=== PATIENT | female | born 1955 | race Caucasian/White ===

== ENCOUNTER 2017-01-07 15:42 | Emergency (ER) | payer OTHER ==
[~2017-01-07] VITALS: Ht 180.3 cm; Wt 77.3 kg
[2017-01-07] MEDS ORDERED: AMOX/K (15:52)
[2017-01-07] MEDS ORDERED: PRED20TA (15:52)
[2017-01-07] MEDS ORDERED: LIDOCAINE 1% MDV 20ML VIAL As Ordered ONE (15:57)
--- NOTE | 2017-01-07 16:27 | ED PDOC ---
Post-Departure Follow-Up patient not seen by ED provider - cared for by Shanna Hicks MD Jan 07, 2017 16:27
[2017-01-07 17:56] VITALS: BP 145/78
--- NOTE | 2017-01-08 09:14 | ER ---
DATE OF CONSULTATION: 01/07/2017 Ms. Shipman is a 61-year-old white female who sustained a paper cut over the weekend. The cut was in the thenar fold on the right hand. Over the past 12 hours it has become more swollen and necrotic. It looks as if there is a superficial abscess. She has had no fever or chills. She was recently started on Augmentin and on prednisone for an acute cough. Those medications were started this morning. Upon examination, she had what looked to be a pointing abscess into the thenar fold. The abscess was therefore lanced. Surprisingly, but disappointingly, there was not a lot of pus. The wound was explored to look for a foreign body and there was none. It was widely opened and packed with iodoform gauze. It was then dressed. She will be given 2 grams of IV Ancef and will continue with her Augmentin. I have asked her to stop the prednisone. I will follow her up tomorrow in the office. She has been instructed that should this become more swollen and if she should start to develop tenderness in her finger and on motion of her fingers, she should call me directly.
== END 2017-01-07 17:57 | disposition home or self-care (01) ==
LOC: M ED 15:42
DX: L02.511 Cutaneous abscess of right hand (principal)
CPT/HCPCS: 10060; 87070; 87077; 87186; 87205; 96365; 99282; J0690

== ENCOUNTER → 2019-05-03 | Outpatient (REF) | payer OTHER ==
[~2019-05-03] MED LIST: AMOX/K; PRED20TA
== END ==
LOC: M LAB REF 17:21
PROVIDERS: ATTEND Nurse Practitioner Adult Health
DX: R70.0 Elevated erythrocyte sedimentation rate (principal)

== ENCOUNTER → 2019-06-30 | Outpatient (REF) | payer OTHER | LOC: M LAB REF 12:16 | PROVIDERS: ATTEND Nurse Practitioner Adult Health | DX: Z00.01 Encounter for general adult medical examination with abnormal findings (principal) ==

== ENCOUNTER → 2019-08-02 | Outpatient (REF) ==
[2019-08-02 10:05] LABS: RUBELLA IgG QUALITATIVE IMMUNE (IMMUNE)
== END ==
LOC: M LAB 07:46
PROVIDERS: ATTEND Nurse Practitioner Adult Health
DX: Z02.1 Encounter for pre-employment examination (principal)

== ENCOUNTER → 2019-09-15 | Outpatient (REF) | payer OTHER ==
[2019-09-15 12:33] LABS: BASO % 1.3 % (0.0-1.0); EOS # 0.1 10^3/uL (0.0-0.5); EOS % 2.6 % (0.0-3.0); HEMATOCRIT 38.5 % (36.0-47.0); HEMOGLOBIN 13.1 g/dl (12.0-15.5); LYMPH % 33.8 % (24.0-44.0); MEAN CORPUSCULAR HEMOGLOBIN 33.2 pg (27.0-33.0); MEAN CORPUSCULAR VOLUME 97.7 fl (80.0-96.0); MONO # 0.5 10^3/uL (0.0-0.8); MONO % 14.8 % (0.0-5.0); NEUTROPHILS # 1.4 10^3/uL (1.5-8.5); NEUTROPHILS % 47.2 % (36.0-66.0); PLATELET COUNT, AUTOMATED 197 10^3/uL (150-450); RED BLOOD COUNT 3.94 10^6/uL (4.00-5.40); WHITE BLOOD COUNT 3.1 10^3/uL (4.0-10.0)
[2019-09-15 12:53] LABS: ERYTHROCYTE SEDIMENTATION RATE 54 mm/hr (0-30)
[2019-09-15 13:30] LABS: ALBUMIN 3.7 GM/DL (3.2-5.2); ALT/SGPT 65 U/L (12-78); BILIRUBIN,TOTAL 0.4 MG/DL (0.2-1.0); BLOOD UREA NITROGEN 10 MG/DL (7-18); CALCIUM LEVEL 9.2 MG/DL (8.8-10.2); CARBON DIOXIDE LEVEL 26 MEQ/L (21-32); CHLORIDE LEVEL 100 MEQ/L (98-107); CREATININE FOR GFR 0.58 MG/DL (0.55-1.30); GLOMERULAR FILTRATION RATE > 60.0 (>45); GLUCOSE, FASTING 94 MG/DL (70-100); IMMUNOGLOBULIN A 33.3 MG/DL (70-400); IMMUNOGLOBULIN G 282 MG/DL (681-1648); LDH LACTATE DEHYDROGENASE 151 U/L (84-246); POTASSIUM SERUM 4.3 MEQ/L (3.5-5.1); SODIUM LEVEL 134 MEQ/L (136-145); TOTAL PROTEIN 9.5 GM/DL (6.4-8.2)
[2019-09-18 00:06] LABS: BETA 2 MICROGLOBULIN 1.5 mg/L (0.6-2.4); FREE KAPPA LIGHT CHAINS SERUM 8.9 mg/L (3.3-19.4); FREE LAMBDA LIGHT CHAINS SERUM 107.7 mg/L (5.7-26.3); KAPPA/LAMBDA RATIO SERUM 0.08 (0.26-1.65)
[2019-09-19 10:40] LABS: ALBUMIN 4.62 GM/DL (3.29-5.55); ALBUMIN % 48.6 % (55.8-66.1); ALPHA-1-GLOBULIN % 2.8 % (2.9-4.9); ALPHA-1-GLOBULINS 0.27 GM/DL (0.17-0.41); ALPHA-2-GLOBULINS 0.65 GM/DL (0.42-0.99); ALPHA-2-GLOBULINS % 6.8 % (7.1-11.8); BETA-1-GLOBULINS 0.42 GM/DL (0.28-0.60); BETA-1-GLOBULINS % 4.4 % (4.7-7.2); BETA-2-GLOBULINS 0.29 GM/DL (0.19-0.55); GAMMA GLOBULIN % 34.4 % (11.1-18.8); GAMMA GLOBULINS 3.27 GM/DL (0.65-1.58)
== END ==
LOC: M LAB REF 11:41
PROVIDERS: ATTEND Internal Medicine Medical Oncology
DX: D47.2 Monoclonal gammopathy (principal)

== ENCOUNTER → 2019-10-25 | Outpatient (REF) | payer OTHER | LOC: M LAB REF 16:55 | PROVIDERS: ATTEND Internal Medicine Medical Oncology | DX: D47.2 Monoclonal gammopathy (principal) ==

== ENCOUNTER → 2020-06-27 | Outpatient (REF) | payer BC, MEDICARE ==
[~2020-06-27] MED LIST changes: +HYDR12.55 PO; +IMBR1CAP PO; +NORV5TAB PO
[2020-06-27 19:38] LABS: BASO % 1.7 % (0.0-1.0); EOS % 0.4 % (0.0-3.0); HEMATOCRIT 40.9 % (36.0-47.0); HEMOGLOBIN 13.4 g/dl (12.0-15.5); LYMPH % 41.8 % (24.0-44.0); MEAN CORPUSCULAR HEMOGLOBIN 32.4 pg (27.0-33.0); MEAN CORPUSCULAR HGB CONC 32.8 g/dl (32.0-36.5); MEAN CORPUSCULAR VOLUME 98.8 fl (80.0-96.0); MONO # 0.5 10^3/uL (0.0-0.8); MONO % 22.8 % (0.0-5.0); NEUTROPHILS % 32.9 % (36.0-66.0); PLATELET COUNT, AUTOMATED 128 10^3/uL (150-450); RED BLOOD COUNT 4.14 10^6/uL (4.00-5.40); WHITE BLOOD COUNT 2.3 10^3/uL (4.0-10.0)
[2020-06-27 19:42] LABS: OSMOLALITY SERUM 317 MOSM/KG (280-301)
[2020-06-27 19:55] LABS: NEUTROPHILS # 0.8 10^3/uL (1.5-8.5)
[2020-06-27 20:55] LABS: ALBUMIN 3.4 GM/DL (3.2-5.2); ALT/SGPT 104 U/L (12-78); BILIRUBIN,TOTAL 0.7 MG/DL (0.2-1.0); BLOOD UREA NITROGEN 6 MG/DL (7-18); CALCIUM LEVEL 8.8 MG/DL (8.8-10.2); CARBON DIOXIDE LEVEL 28 MEQ/L (21-32); CHLORIDE LEVEL 98 MEQ/L (98-107); CREATININE FOR GFR 0.61 MG/DL (0.55-1.30); GLOMERULAR FILTRATION RATE > 60.0 (>45); GLUCOSE, FASTING 103 MG/DL (70-100); IMMUNOGLOBULIN G 604 MG/DL (681-1648); POTASSIUM SERUM 5.2 MEQ/L (3.5-5.1); SODIUM LEVEL 133 MEQ/L (136-145); TOTAL PROTEIN 8.2 GM/DL (6.4-8.2)
[2020-07-03 12:08] LABS: ALBUMIN 3.93 GM/DL (3.29-5.55); ALBUMIN % 47.9 % (55.8-66.1); ALPHA-2-GLOBULINS % 8.2 % (7.1-11.8); BETA-2-GLOBULINS % 2.6 % (3.2-6.5); GAMMA GLOBULIN % 32.3 % (11.1-18.8)
[2020-07-03 12:09] LABS: ALPHA-1-GLOBULINS 0.33 GM/DL (0.17-0.41); ALPHA-2-GLOBULINS 0.67 GM/DL (0.42-0.99); BETA-1-GLOBULINS 0.41 GM/DL (0.28-0.60); BETA-2-GLOBULINS 0.21 GM/DL (0.19-0.55); GAMMA GLOBULINS 2.65 GM/DL (0.65-1.58)
[2020-07-03 21:07] LABS: FREE KAPPA LIGHT CHAINS SERUM 11.6 mg/L (3.3-19.4); FREE LAMBDA LIGHT CHAINS SERUM 109.6 mg/L (5.7-26.3); KAPPA/LAMBDA RATIO SERUM 0.11 (0.26-1.65); SERUM VISCOSITY 2.1 rel.saline (1.4-2.1)
== END ==
LOC: M LAB REF 16:48
PROVIDERS: ATTEND Specialist
DX: C85.10 Unspecified B-cell lymphoma, unspecified site (principal)

== ENCOUNTER → 2020-08-02 | Outpatient (REF) | payer BC, MEDICARE ==
[2020-08-02 17:32] LABS: BASO # 0.1 10^3/uL (0.0-0.2); BASO % 1.7 % (0.0-1.0); EOS % 0.3 % (0.0-3.0); HEMATOCRIT 38.1 % (36.0-47.0); LYMPH # 0.7 10^3/uL (1.5-5.0); LYMPH % 24.7 % (24.0-44.0); MEAN CORPUSCULAR HEMOGLOBIN 33.1 pg (27.0-33.0); MEAN CORPUSCULAR HGB CONC 34.1 g/dl (32.0-36.5); MEAN CORPUSCULAR VOLUME 96.9 fl (80.0-96.0); MONO # 0.6 10^3/uL (0.0-0.8); MONO % 21.6 % (2.0-8.0); NEUTROPHILS # 1.5 10^3/uL (1.5-8.5); NEUTROPHILS % 51.4 % (36.0-66.0); PLATELET COUNT, AUTOMATED 133 10^3/uL (150-450); RED BLOOD COUNT 3.93 10^6/uL (4.00-5.40); WHITE BLOOD COUNT 2.9 10^3/uL (4.0-10.0)
== END ==
LOC: M LAB REF 16:41
PROVIDERS: ATTEND Specialist
DX: C85.10 Unspecified B-cell lymphoma, unspecified site (principal)

== ENCOUNTER → 2020-09-20 | Outpatient (REF) | payer BC, MEDICARE | LOC: M LAB REF 11:10 | PROVIDERS: ATTEND Nurse Practitioner Adult Health | DX: S81.802A Unspecified open wound, left lower leg, initial encounter (principal); X58.XXXA Exposure to other specified factors, initial encounter; Y92.9 Unspecified place or not applicable ==

== ENCOUNTER → 2020-09-27 | Outpatient (CLI) | payer BC, MEDICARE ==
[~2020-09-27] MED LIST changes: +GLYCCAP PO; +MULT1TAB7 PO; +PRED5TA PO
[2020-09-27 16:23] LABS: HEMATOCRIT 40.1 % (36.0-47.0); HEMOGLOBIN 13.8 g/dl (12.0-15.5); MEAN CORPUSCULAR HEMOGLOBIN 33.2 pg (27.0-33.0); MEAN CORPUSCULAR HGB CONC 34.4 g/dl (32.0-36.5); MEAN CORPUSCULAR VOLUME 96.4 fl (80.0-96.0); PLATELET COUNT, AUTOMATED 152 10^3/uL (150-450); RED BLOOD COUNT 4.16 10^6/uL (4.00-5.40); WHITE BLOOD COUNT 3.7 10^3/uL (4.0-10.0)
[2020-09-27 16:47] LABS: BLOOD UREA NITROGEN 8 MG/DL (7-18); CARBON DIOXIDE LEVEL 28 MEQ/L (21-32); CHLORIDE LEVEL 97 MEQ/L (98-107); CREATININE FOR GFR 0.51 MG/DL (0.55-1.30); GLOMERULAR FILTRATION RATE > 60.0 (>45); GLUCOSE, FASTING 111 MG/DL (70-100); SODIUM LEVEL 132 MEQ/L (136-145)
== END ==
LOC: M LAB 15:46
PROVIDERS: ATTEND Nurse Practitioner Adult Health
DX: S81.802A Unspecified open wound, left lower leg, initial encounter (principal); L30.9 Dermatitis, unspecified; C88.0 Waldenstrom macroglobulinemia; X58.XXXA Exposure to other specified factors, initial encounter; Y92.9 Unspecified place or not applicable

== ENCOUNTER → 2020-10-21 | Outpatient (REF) | payer BC, MEDICARE ==
[~2020-10-21] MED LIST changes: +FURO20TA2 PO
== END ==
LOC: M LAB REF 13:39
PROVIDERS: ATTEND Physician Assistant
DX: R21 Rash and other nonspecific skin eruption (principal); C44.719 Basal cell carcinoma of skin of left lower limb, including hip

== ENCOUNTER → 2020-12-03 | Outpatient (REF) | payer BC, MEDICARE | LOC: M LAB REF 19:07 | PROVIDERS: ATTEND Dermatology | DX: L90.5 Scar conditions and fibrosis of skin (principal) ==

== ENCOUNTER → 2021-01-01 | Outpatient (REF) | payer BC, MEDICARE ==
[~2021-01-01] MED LIST changes: +LEVOTAB10 PO
[2021-01-01 18:39] LABS: BASO # 0.1 10^3/uL (0.0-0.2); BASO % 1.2 % (0.0-1.0); EOS # 0.2 10^3/uL (0.0-0.5); EOS % 3.5 % (0.0-3.0); HEMATOCRIT 36.8 % (36.0-47.0); HEMOGLOBIN 12.4 g/dl (12.0-15.5); LYMPH # 1.6 10^3/uL (1.5-5.0); LYMPH % 32.2 % (24.0-44.0); MEAN CORPUSCULAR HGB CONC 33.7 g/dl (32.0-36.5); MEAN CORPUSCULAR VOLUME 94.8 fl (80.0-96.0); MONO # 0.7 10^3/uL (0.0-0.8); MONO % 14.1 % (2.0-8.0); NEUTROPHILS # 2.4 10^3/uL (1.5-8.5); NEUTROPHILS % 48.6 % (36.0-66.0); PLATELET COUNT, AUTOMATED 198 10^3/uL (150-450); RED BLOOD COUNT 3.88 10^6/uL (4.00-5.40); WHITE BLOOD COUNT 4.9 10^3/uL (4.0-10.0)
[2021-01-03 09:06] LABS: TOTAL PROTEIN 9.4 GM/DL (6.4-8.2)
[2021-01-03 09:13] LABS: ALBUMIN 3.3 GM/DL (3.2-5.2); ALT/SGPT 32 U/L (12-78); BILIRUBIN,TOTAL 0.7 MG/DL (0.2-1.0); BLOOD UREA NITROGEN 14 MG/DL (7-18); CALCIUM LEVEL 9.5 MG/DL (8.8-10.2); CARBON DIOXIDE LEVEL 30 MEQ/L (21-32); CHLORIDE LEVEL 102 MEQ/L (98-107); CREATININE FOR GFR 0.69 MG/DL (0.55-1.30); GLOMERULAR FILTRATION RATE > 60.0 (>45); GLUCOSE, FASTING 108 MG/DL (70-100); IMMUNOGLOBULIN G 401 MG/DL (681-1648); POTASSIUM SERUM 3.6 MEQ/L (3.5-5.1); SODIUM LEVEL 137 MEQ/L (136-145); TOTAL PROTEIN 9.4 GM/DL (6.4-8.2)
[2021-01-03 09:36] LABS: IMMUNOGLOBULIN A 39.6 MG/DL (70-400)
[2021-01-03 14:31] LABS: ALBUMIN 4.11 GM/DL (3.29-5.55); ALBUMIN % 43.7 % (55.8-66.1); ALPHA-1-GLOBULIN % 2.8 % (2.9-4.9); ALPHA-1-GLOBULINS 0.26 GM/DL (0.17-0.41); ALPHA-2-GLOBULINS % 7.4 % (7.1-11.8); BETA-1-GLOBULINS % 4.3 % (4.7-7.2); BETA-2-GLOBULINS % 2.9 % (3.2-6.5); GAMMA GLOBULIN % 38.9 % (11.1-18.8)
[2021-01-03 14:32] LABS: BETA-2-GLOBULINS 0.27 GM/DL (0.19-0.55); GAMMA GLOBULINS 3.66 GM/DL (0.65-1.58)
[2021-01-03 14:42] LABS: IMMUNOTYPING SERUM IGM ABNORMAL (NORMAL); IMMUNOTYPING SERUM LAMBDA ABNORMAL (NORMAL)
== END ==
LOC: M LAB REF 18:11
PROVIDERS: ATTEND Specialist
DX: C88.0 Waldenstrom macroglobulinemia (principal)

== ENCOUNTER → 2021-03-26 | Outpatient (REF) | payer BC, MEDICARE ==
[2021-03-26 18:10] LABS: BASO # 0.1 10^3/uL (0.0-0.2); BASO % 1.3 % (0.0-1.0); EOS # 0.1 10^3/uL (0.0-0.5); EOS % 1.3 % (0.0-3.0); HEMATOCRIT 37.9 % (36.0-47.0); HEMOGLOBIN 12.8 g/dl (12.0-15.5); LYMPH # 1.3 10^3/uL (1.5-5.0); LYMPH % 23.1 % (24.0-44.0); MEAN CORPUSCULAR HEMOGLOBIN 32.3 pg (27.0-33.0); MEAN CORPUSCULAR HGB CONC 33.8 g/dl (32.0-36.5); MEAN CORPUSCULAR VOLUME 95.7 fl (80.0-96.0); MONO % 18.4 % (2.0-8.0); NEUTROPHILS % 55.4 % (36.0-66.0); PLATELET COUNT, AUTOMATED 170 10^3/uL (150-450); RED BLOOD COUNT 3.96 10^6/uL (4.00-5.40); WHITE BLOOD COUNT 5.5 10^3/uL (4.0-10.0)
[2021-03-26 18:50] LABS: ALBUMIN 3.8 GM/DL (3.2-5.2); ALT/SGPT 36 U/L (12-78); BILIRUBIN,TOTAL 1.1 MG/DL (0.2-1.0); BLOOD UREA NITROGEN 13 MG/DL (7-18); CALCIUM LEVEL 9.7 MG/DL (8.8-10.2); CARBON DIOXIDE LEVEL 29 MEQ/L (21-32); CHLORIDE LEVEL 98 MEQ/L (98-107); CREATININE FOR GFR 0.62 MG/DL (0.55-1.30); GLOMERULAR FILTRATION RATE > 60.0 (>45); GLUCOSE, FASTING 85 MG/DL (70-100); POTASSIUM SERUM 3.8 MEQ/L (3.5-5.1); SODIUM LEVEL 131 MEQ/L (136-145); TOTAL PROTEIN 8.7 GM/DL (6.4-8.2)
== END ==
LOC: M LAB REF 17:31
PROVIDERS: ATTEND Specialist
DX: C88.0 Waldenstrom macroglobulinemia (principal)

== ENCOUNTER → 2021-07-01 | Outpatient (CLI) | payer BC, MEDICARE ==
[~2021-07-01] MED LIST changes: +TRIA1CR80
== END ==
LOC: M ADAMS 13:59
PROVIDERS: ATTEND Specialist
DX: C88.0 Waldenstrom macroglobulinemia (principal)

== ENCOUNTER → 2021-10-29 | Outpatient (CLI) | payer MEDICARE, BC ==
[2021-10-29 17:54] LABS: HEMOGLOBIN A1c 4.9 %
[2021-10-29 18:12] LABS: CHOLESTEROL RISK RATIO 3.278 (<5)
== END ==
LOC: M ADAMS 15:20
PROVIDERS: ATTEND Nurse Practitioner Adult Health
DX: E78.00 Pure hypercholesterolemia, unspecified (principal); R01.1 Cardiac murmur, unspecified

== ENCOUNTER → 2021-10-29 | Outpatient (CLI) | payer MEDICARE, BC ==
[2021-10-29 17:42] LABS: BASO # 0.1 10^3/uL (0.0-0.2); EOS # 0.1 10^3/uL (0.0-0.5); EOS % 1.8 % (0.0-3.0); HEMATOCRIT 37.8 % (36.0-47.0); LYMPH # 1.4 10^3/uL (1.5-5.0); LYMPH % 27.7 % (24.0-44.0); MEAN CORPUSCULAR HEMOGLOBIN 33.4 pg (27.0-33.0); MEAN CORPUSCULAR HGB CONC 34.4 g/dl (32.0-36.5); MEAN CORPUSCULAR VOLUME 97.2 fl (80.0-96.0); MONO # 0.9 10^3/uL (0.0-0.8); MONO % 17.4 % (2.0-8.0); NEUTROPHILS # 2.6 10^3/uL (1.5-8.5); NEUTROPHILS % 51.7 % (36.0-66.0); PLATELET COUNT, AUTOMATED 195 10^3/uL (150-450); RED BLOOD COUNT 3.89 10^6/uL (4.00-5.40); WHITE BLOOD COUNT 5.1 10^3/uL (4.0-10.0)
[2021-10-29 18:50] LABS: ALBUMIN 3.5 GM/DL (3.2-5.2); ALT/SGPT 49 U/L (12-78); BILIRUBIN,TOTAL 0.8 MG/DL (0.2-1.0); BLOOD UREA NITROGEN 13 MG/DL (7-18); CARBON DIOXIDE LEVEL 26 MEQ/L (21-32); CHLORIDE LEVEL 101 MEQ/L (98-107); CREATININE FOR GFR 0.64 MG/DL (0.55-1.30); GLOMERULAR FILTRATION RATE > 60.0 (>45); GLUCOSE, FASTING 93 MG/DL (70-100); IMMUNOGLOBULIN A 31.8 MG/DL (70-400); IMMUNOGLOBULIN G 305 MG/DL (681-1648); POTASSIUM SERUM 4.2 MEQ/L (3.5-5.1); SODIUM LEVEL 135 MEQ/L (136-145); TOTAL PROTEIN 9.7 GM/DL (6.4-8.2)
[2021-10-31 14:02] LABS: ALBUMIN 4.19 GM/DL (3.29-5.55); ALBUMIN % 43.2 % (55.8-66.1); ALPHA-1-GLOBULIN % 2.8 % (2.9-4.9); ALPHA-1-GLOBULINS 0.27 GM/DL (0.17-0.41); ALPHA-2-GLOBULINS 0.78 GM/DL (0.42-0.99); BETA-1-GLOBULINS 0.43 GM/DL (0.28-0.60); BETA-1-GLOBULINS % 4.4 % (4.7-7.2); BETA-2-GLOBULINS 0.28 GM/DL (0.19-0.55); BETA-2-GLOBULINS % 2.9 % (3.2-6.5); GAMMA GLOBULIN % 38.7 % (11.1-18.8); GAMMA GLOBULINS 3.75 GM/DL (0.65-1.58)
== END ==
LOC: M ADAMS 15:17
PROVIDERS: ATTEND Internal Medicine Hematology & Oncology
DX: C88.0 Waldenstrom macroglobulinemia (principal); E78.00 Pure hypercholesterolemia, unspecified; R01.1 Cardiac murmur, unspecified; Z79.899 Other long term (current) drug therapy

== ENCOUNTER → 2022-02-17 | Outpatient (REF) | payer MEDICARE, BC ==
[2022-02-17 16:56] LABS: EOS # 0.1 10^3/uL (0.0-0.5); EOS % 1.2 % (0.0-3.0); HEMATOCRIT 37.7 % (36.0-47.0); HEMOGLOBIN 12.9 g/dl (12.0-15.5); LYMPH # 1.3 10^3/uL (1.5-5.0); LYMPH % 31.1 % (24.0-44.0); MEAN CORPUSCULAR HEMOGLOBIN 33.2 pg (27.0-33.0); MEAN CORPUSCULAR HGB CONC 34.2 g/dl (32.0-36.5); MEAN CORPUSCULAR VOLUME 97.2 fl (80.0-96.0); MONO # 0.9 10^3/uL (0.0-0.8); MONO % 22.2 % (2.0-8.0); NEUTROPHILS # 1.8 10^3/uL (1.5-8.5); PLATELET COUNT, AUTOMATED 152 10^3/uL (150-450); RED BLOOD COUNT 3.88 10^6/uL (4.00-5.40); WHITE BLOOD COUNT 4.2 10^3/uL (4.0-10.0)
[2022-02-17 18:32] LABS: ALBUMIN 3.6 GM/DL (3.2-5.2); ALT/SGPT 43 U/L (12-78); BLOOD UREA NITROGEN 11 MG/DL (7-18); CALCIUM LEVEL 9.7 MG/DL (8.8-10.2); CARBON DIOXIDE LEVEL 29 MEQ/L (21-32); CHLORIDE LEVEL 98 MEQ/L (98-107); CREATININE FOR GFR 0.55 MG/DL (0.55-1.30); GLOMERULAR FILTRATION RATE > 60.0 (>45); GLUCOSE, FASTING 96 MG/DL (70-100); IMMUNOGLOBULIN G 378 MG/DL (681-1648); POTASSIUM SERUM 3.9 MEQ/L (3.5-5.1); SODIUM LEVEL 133 MEQ/L (136-145); TOTAL PROTEIN 9.1 GM/DL (6.4-8.2)
== END ==
LOC: M LABDRWAD 16:15
PROVIDERS: ATTEND Specialist
DX: C88.0 Waldenstrom macroglobulinemia (principal)

== ENCOUNTER → 2022-07-29 | Outpatient (REF) | payer MEDICARE, BC ==
[2022-07-29 16:38] LABS: BASO # 0.1 10^3/uL (0.0-0.2); BASO % 1.2 % (0.0-1.0); EOS # 0.1 10^3/uL (0.0-0.5); EOS % 1.3 % (0.0-3.0); HEMATOCRIT 38.8 % (36.0-47.0); LYMPH % 32.7 % (24.0-44.0); MEAN CORPUSCULAR HEMOGLOBIN 32.6 pg (27.0-33.0); MEAN CORPUSCULAR HGB CONC 33.5 g/dl (32.0-36.5); MEAN CORPUSCULAR VOLUME 97.2 fl (80.0-96.0); MONO # 0.8 10^3/uL (0.0-0.8); MONO % 13.7 % (2.0-8.0); NEUTROPHILS # 3.1 10^3/uL (1.5-8.5); NEUTROPHILS % 50.8 % (36.0-66.0); PLATELET COUNT, AUTOMATED 217 10^3/uL (150-450); RED BLOOD COUNT 3.99 10^6/uL (4.00-5.40)
[2022-07-29 16:39] LABS: CK-MB VALUE MASS < 1.0 NG/ML (<3.6)
[2022-07-29 16:41] LABS: CPK CREATINE PHOSPHOKINASE 23 U/L (34-145); MB/CK RELATIVE INDEX 4.34 (< OR =4)
[2022-07-29 16:42] LABS: IMMUNOGLOBULIN A 50.9 MG/DL (40-350)
[2022-07-29 16:43] LABS: IMMUNOGLOBULIN G 376 MG/DL (650-1600)
[2022-07-30 07:52] LABS: IMMUNOGLOBULIN M > 3300.0 MG/DL (50-300)
== END ==
LOC: M LABDRWAD 15:55
PROVIDERS: ATTEND Specialist
DX: C88.0 Waldenstrom macroglobulinemia (principal)

== ENCOUNTER → 2022-09-22 | Outpatient (CLI) | payer BC, MEDICARE ==
[~2022-09-22] MED LIST changes: +GASTROGRAFIN SOLUTION 30ML As Ordered ONE; +ISOVUE-370 76% 100ML VIAL As Ordered ONE
== END ==
LOC: M RAD 15:56
PROVIDERS: ATTEND Specialist
DX: D89.0 Polyclonal hypergammaglobulinemia (principal)
CPT/HCPCS: 71260; 74177; Q9963; Q9967

== ENCOUNTER → 2022-11-11 | Outpatient (CLI) | payer BC, MEDICARE ==
[~2022-11-11] MED LIST changes: -GASTROGRAFIN SOLUTION 30ML As Ordered ONE; -ISOVUE-370 76% 100ML VIAL As Ordered ONE
[2022-11-11 18:49] LABS: CHOLESTEROL RISK RATIO 2.52 (<5); HDL CHOLESTEROL 82.7 MG/DL (>40); LDL CHOLESTEROL 117.3 MG/DL (<100); NON-HDL-C 126.3 MG/DL
== END ==
LOC: M LAB 17:41
PROVIDERS: ATTEND Nurse Practitioner Adult Health
DX: E78.00 Pure hypercholesterolemia, unspecified (principal)

== ENCOUNTER → 2022-11-11 | Outpatient (CLI) | payer BC, MEDICARE ==
[2022-11-11 18:22] LABS: BASO # 0.1 10^3/uL (0.0-0.2); BASO % 1.4 % (0.0-1.0); EOS % 0.5 % (0.0-3.0); HEMATOCRIT 40.2 % (36.0-47.0); LYMPH # 1.1 10^3/uL (1.5-5.0); LYMPH % 24.9 % (24.0-44.0); MEAN CORPUSCULAR HEMOGLOBIN 33.3 pg (27.0-33.0); MEAN CORPUSCULAR HGB CONC 34.8 g/dl (32.0-36.5); MEAN CORPUSCULAR VOLUME 95.7 fl (80.0-96.0); MONO # 0.9 10^3/uL (0.0-0.8); MONO % 21.9 % (2.0-8.0); NEUTROPHILS # 2.2 10^3/uL (1.5-8.5); NEUTROPHILS % 50.8 % (36.0-66.0); PLATELET COUNT, AUTOMATED 181 10^3/uL (150-450); WHITE BLOOD COUNT 4.3 10^3/uL (4.0-10.0)
[2022-11-11 18:49] LABS: ALBUMIN 3.9 G/DL (3.2-5.2); ALKALINE PHOSPHATASE 63 U/L (46-116); ALT/SGPT 72 U/L (7.0-40); AST/SGOT 58 U/L (<34); BLOOD UREA NITROGEN 10 MG/DL (9-23); CALCIUM LEVEL 9.3 MG/DL (8.3-10.6); CARBON DIOXIDE LEVEL 28 MMOL/L (20-31); CHLORIDE LEVEL 95 MMOL/L (98-107); CREATININE FOR GFR 0.51 MG/DL (0.55-1.30); GLOMERULAR FILTRATION RATE > 60.0 (>45); GLUCOSE, FASTING 91 MG/DL (74-106); POTASSIUM SERUM 3.6 MMOL/L (3.5-5.1); SODIUM LEVEL 130 MMOL/L (136-145); TOTAL PROTEIN 8.2 G/DL (5.7-8.2)
[2022-11-11 19:00] LABS: IMMUNOGLOBULIN M 3174.6 MG/DL (50-300)
[2022-11-20 00:07] LABS: FREE KAPPA LIGHT CHAINS SERUM 8.9 mg/L (3.3-19.4); FREE LAMBDA LIGHT CHAINS SERUM 157.2 mg/L (5.7-26.3); KAPPA/LAMBDA RATIO SERUM 0.06 (0.26-1.65); SERUM VISCOSITY 2.2 rel.saline (1.4-2.1)
== END ==
LOC: M LAB 17:39
PROVIDERS: ATTEND Specialist
DX: C88.0 Waldenstrom macroglobulinemia (principal)

== ENCOUNTER → 2023-03-14 | Outpatient (CLI) | payer BC, MEDICARE ==
[~2023-03-14] MED LIST changes: +ROSU5TAB5; +TORS5TAB2; -TRIA1CR80; +TRIA1CR80 TOP
[2023-03-14 15:26] LABS: BLOOD UREA NITROGEN 10 MG/DL (9-23); CALCIUM LEVEL 8.6 MG/DL (8.3-10.6); CARBON DIOXIDE LEVEL 30 MMOL/L (20-31); CHLORIDE LEVEL 98 MMOL/L (98-107); GLOMERULAR FILTRATION RATE > 60.0 (>45); GLUCOSE, FASTING 111 MG/DL (74-106); SODIUM LEVEL 134 MMOL/L (136-145)
== END ==
LOC: M LAB 14:30
PROVIDERS: ATTEND Internal Medicine Cardiovascular Disease
DX: R60.0 Localized edema (principal)

== ENCOUNTER → 2023-05-17 | Outpatient (REF) | payer BC, MEDICARE ==
[2023-05-17 16:01] LABS: BASO # 0.1 10^3/uL (0.0-0.2); BASO % 1.9 % (0.0-1.0); EOS % 0.6 % (0.0-3.0); HEMATOCRIT 40.2 % (36.0-47.0); HEMOGLOBIN 13.7 g/dl (12.0-15.5); LYMPH # 2.5 10^3/uL (1.5-5.0); MEAN CORPUSCULAR HGB CONC 34.1 g/dl (32.0-36.5); MEAN CORPUSCULAR VOLUME 96.9 fl (80.0-96.0); MONO # 1.2 10^3/uL (0.0-0.8); MONO % 21.7 % (2.0-8.0); NEUTROPHILS # 1.5 10^3/uL (1.5-8.5); NEUTROPHILS % 27.6 % (36.0-66.0); PLATELET COUNT, AUTOMATED 215 10^3/uL (150-450); RED BLOOD COUNT 4.15 10^6/uL (4.00-5.40); WHITE BLOOD COUNT 5.3 10^3/uL (4.0-10.0)
[2023-05-17 16:29] LABS: ALBUMIN 3.7 G/DL (3.2-5.2); ALKALINE PHOSPHATASE 64 U/L (46-116); ALT/SGPT 73 U/L (7.0-40); AST/SGOT 59 U/L (<34); BILIRUBIN,TOTAL 1.1 MG/DL (0.3-1.2); BLOOD UREA NITROGEN 20 MG/DL (9-23); CALCIUM LEVEL 9.5 MG/DL (8.3-10.6); CARBON DIOXIDE LEVEL 29 MMOL/L (20-31); CHLORIDE LEVEL 100 MMOL/L (98-107); CREATININE FOR GFR 0.77 MG/DL (0.55-1.30); GLOMERULAR FILTRATION RATE > 60.0 (>45); GLUCOSE, FASTING 100 MG/DL (74-106); POTASSIUM SERUM 4.1 MMOL/L (3.5-5.1); SODIUM LEVEL 136 MMOL/L (136-145)
== END ==
LOC: M LABDRWAD 15:35
PROVIDERS: ATTEND Specialist
DX: C88.0 Waldenstrom macroglobulinemia (principal)

== ENCOUNTER → 2024-02-07 | Outpatient (REF) | payer MEDICARE, BC, OTHER ==
[~2024-02-07] MED LIST changes: +METO50TA7; +POTA-151; +REPA140I2 SC; +ROSU5TAB40; -ROSU5TAB5; +TORS20TA2
[2024-02-07 18:29] LABS: BASO # 0.1 10^3/uL (0.0-0.2); BASO % 1.6 % (0.0-1.0); EOS # 0.1 10^3/uL (0.0-0.5); EOS % 1.4 % (0.0-3.0); HEMATOCRIT 42.5 % (36.0-47.0); HEMOGLOBIN 14.1 g/dl (12.0-15.5); LYMPH # 1.7 10^3/uL (1.5-5.0); LYMPH % 26.8 % (24.0-44.0); MEAN CORPUSCULAR HEMOGLOBIN 33.3 pg (27.0-33.0); MEAN CORPUSCULAR HGB CONC 33.2 g/dl (32.0-36.5); MEAN CORPUSCULAR VOLUME 100.5 fl (80.0-96.0); MONO # 1.7 10^3/uL (0.0-0.8); MONO % 27.5 % (2.0-8.0); NEUTROPHILS # 2.6 10^3/uL (1.5-8.5); NEUTROPHILS % 42.2 % (36.0-66.0); PLATELET COUNT, AUTOMATED 192 10^3/uL (150-450); RED BLOOD COUNT 4.23 10^6/uL (4.00-5.40); WHITE BLOOD COUNT 6.3 10^3/uL (4.0-10.0)
[2024-02-07 18:33] LABS: ALBUMIN 3.7 G/DL (3.2-5.2); ALKALINE PHOSPHATASE 83 U/L (46-116); ALT/SGPT 68 U/L (7.0-40); AST/SGOT 45 U/L (<34); BLOOD UREA NITROGEN 13 MG/DL (9-23); CALCIUM LEVEL 9.1 MG/DL (8.3-10.6); CARBON DIOXIDE LEVEL 28 MMOL/L (20-31); CHLORIDE LEVEL 100 MMOL/L (98-107); CREATININE FOR GFR 0.67 MG/DL (0.55-1.30); GLOMERULAR FILTRATION RATE > 60.0 (>45); GLUCOSE, FASTING 102 MG/DL (74-106); IMMUNOGLOBULIN A 59.9 MG/DL (40-350); IMMUNOGLOBULIN G 352 MG/DL (650-1600); POTASSIUM SERUM 4.3 MMOL/L (3.5-5.1); SODIUM LEVEL 134 MMOL/L (136-145); TOTAL PROTEIN 7.8 G/DL (5.7-8.2)
[2024-02-09 16:46] LABS: T P ELECTROPHORESIS SO 7.9 g/dL (6.1-8.1)
[2024-02-11 07:12] LABS: ALBUMIN SPEP 4.2 g/dL (3.8-4.8); ALPHA-1-GLOBULINS SO 0.3 g/dL (0.2-0.3); ALPHA-2-GLOBULINS SO 0.7 g/dL (0.5-0.9); BETA 2 GLOBULIN 0.3 g/dL (0.2-0.5); BETA-GLOBULIN SO 0.4 g/dL (0.4-0.6); SPEP ABN PROTEIN BAND 1 1.7 g/dL (NONE DETECTED)
[2024-02-13 00:37] LABS: SERUM VISCOSITY 2.1 rel to H2O (1.5-1.9)
== END ==
LOC: M LABDRWAD 17:27
PROVIDERS: ATTEND Specialist
DX: C88.0 Waldenstrom macroglobulinemia (principal); I25.10 Atherosclerotic heart disease of native coronary artery without angina pectoris; Z95.2 Presence of prosthetic heart valve

== ENCOUNTER → 2024-02-07 | Outpatient (REF) | payer MEDICARE, BC, OTHER ==
[2024-02-07 18:33] LABS: BLOOD UREA NITROGEN 13 MG/DL (9-23); CARBON DIOXIDE LEVEL 29 MMOL/L (20-31); CHLORIDE LEVEL 101 MMOL/L (98-107); CHOLESTEROL LEVEL 211 MG/DL (<200); CHOLESTEROL RISK RATIO 4.18 (<5); CREATININE FOR GFR 0.67 MG/DL (0.55-1.30); GLOMERULAR FILTRATION RATE > 60.0 (>45); GLUCOSE, FASTING 102 MG/DL (74-106); HDL CHOLESTEROL 50.4 MG/DL (>40); LDL CHOLESTEROL 101.6 MG/DL (<100); NON-HDL-C 160.6 MG/DL; POTASSIUM SERUM 4.2 MMOL/L (3.5-5.1); SODIUM LEVEL 134 MMOL/L (136-145); TRIGLYCERIDES LEVEL 295 MG/DL (<150)
== END ==
LOC: M LABDRWAD 17:31
PROVIDERS: ATTEND Internal Medicine Cardiovascular Disease
DX: Z95.2 Presence of prosthetic heart valve (principal); I25.10 Atherosclerotic heart disease of native coronary artery without angina pectoris; C88.0 Waldenstrom macroglobulinemia

== ENCOUNTER → 2024-04-20 | Outpatient (REF) | payer BC, MEDICARE ==
[~2024-04-20] MED LIST changes: -ROSU5TAB40; +ROSU5TAB49
== END ==
LOC: M LAB REF 16:17
PROVIDERS: ATTEND Nurse Practitioner Family
DX: N39.0 Urinary tract infection, site not specified (principal)

== ENCOUNTER → 2024-05-02 | Outpatient (REF) | payer BC, MEDICARE | LOC: M LAB REF 16:13 | PROVIDERS: ATTEND Internal Medicine | DX: R30.0 Dysuria (principal); N39.0 Urinary tract infection, site not specified ==

== ENCOUNTER 2024-06-06 15:09 | Emergency (ER) | payer BC, MEDICARE ==
[~2024-06-06] VITALS: Ht 177.8 cm; Wt 83.6 kg
[2024-06-06] MEDS: NS (Normal Saline) 0.9% 1,000 ML IV ONE (16:55)
[2024-06-06] MEDS: ONDANSETRON 4MG 2ML VIAL IV ONE (16:55)
[2024-06-06 16:56] LABS: BASO # 0.1 10^3/uL (0.0-0.2); BASO % 1.1 % (0.0-1.0); EOS % 0.6 % (0.0-3.0); HEMATOCRIT 40.4 % (36.0-47.0); HEMOGLOBIN 14.1 g/dl (12.0-15.5); LYMPH % 21.4 % (24.0-44.0); MEAN CORPUSCULAR HGB CONC 34.9 g/dl (32.0-36.5); MEAN CORPUSCULAR VOLUME 91.8 fl (80.0-96.0); MONO # 0.9 10^3/uL (0.0-0.8); MONO % 20.3 % (2.0-8.0); NEUTROPHILS # 2.6 10^3/uL (1.5-8.5); NEUTROPHILS % 56.4 % (36.0-66.0); PLATELET COUNT, AUTOMATED 201 10^3/uL (150-450); WHITE BLOOD COUNT 4.6 10^3/uL (4.0-10.0)
[2024-06-06 17:29] LABS: ALBUMIN 3.4 G/DL (3.2-5.2); ALKALINE PHOSPHATASE 69 U/L (35-104); ALT/SGPT 52 U/L (7.0-40); AST/SGOT 55 U/L (<34); BILIRUBIN,DIRECT 0.7 MG/DL (<0.4); BILIRUBIN,TOTAL 1.6 MG/DL (0.3-1.2); BLOOD UREA NITROGEN 19 MG/DL (9-23); CALCIUM LEVEL 10.3 MG/DL (8.3-10.6); CARBON DIOXIDE LEVEL 26 MMOL/L (20-31); CHLORIDE LEVEL 89 MMOL/L (98-107); CREATININE FOR GFR 0.71 MG/DL (0.55-1.30); GLOMERULAR FILTRATION RATE > 60.0 (>45); GLUCOSE, FASTING 99 MG/DL (74-106); SODIUM LEVEL 132 MMOL/L (136-145); TOTAL PROTEIN 8.4 G/DL (5.7-8.2)
[2024-06-06 17:30] LABS: THYROID STIMULATING HORMONE 1.988 uIU/ML (0.55-4.78)
[2024-06-06] MEDS ORDERED: ISOVUE-370 76% 100ML VIAL As Ordered ONE (17:58)
[2024-06-06 18:17] LABS: LIPASE 47 U/L (12-53); MAGNESIUM LEVEL 2.1 MG/DL (1.8-2.4)
[2024-06-06] MEDS ORDERED: REGL10TA6 PO (18:38)
[2024-06-06] MEDS ORDERED: PROT1TAB2 PO (18:39)
[2024-06-06] MEDS ORDERED: SUCR1SS PO (18:39)
[2024-06-06] MEDS: POTASSIUM CHLORIDE 10MEQ SR TABLET PO ONE (19:01)
[2024-06-06] MEDS: KCL 10MEQ/100ML SWI (KRUN) 10 MEQ in IV 1 EA IV ONE (19:02)
[2024-06-06 20:22] VITALS: BP 127/61; TEMP 97.6; O2SAT 99
== END 2024-06-06 20:46 | disposition home or self-care (01) ==
LOC: M ED 15:09
DX: R11.0 Nausea (principal); M16.0 Bilateral primary osteoarthritis of hip; K76.0 Fatty (change of) liver, not elsewhere classified; K57.30 Diverticulosis of large intestine without perforation or abscess without bleeding; I10 Essential (primary) hypertension; E78.5 Hyperlipidemia, unspecified; Z79.899 Other long term (current) drug therapy; Z86.79 Personal history of other diseases of the circulatory system; Z87.891 Personal history of nicotine dependence
CPT/HCPCS: 74177; 76705; 80048; 80076; 83690; 83735; 84443; 85025; 93005; 96361; 96365; 96375; 99284; J2405; Q9967

== ENCOUNTER → 2024-06-15 | Outpatient (CLI) | payer BC, MEDICARE ==
[~2024-06-15] MED LIST changes: +LIDOCAINE 2% 100MG/5ML SDV (FOR ANES.) As Ordered ONE; +METO10TA3 PO; -METO50TA7; +METO50TA7 PO; +PANT40TA29 PO; -POTA-151; +POTA-151 PO; +PROT1TAB2 PO; +REGL10TA6 PO; +SUCR1SS PO; +THIA100TA PO; -TORS20TA2; +TORS20TA2 PO; +TRAZ-252 PO; +ZANU80CA PO; +propofoL 200 MG/20 ML VIAL As Ordered ONE
[2024-06-15 14:09] LABS: HEMATOCRIT 39.8 % (36.0-47.0); HEMOGLOBIN 13.9 g/dl (12.0-15.5); MEAN CORPUSCULAR HEMOGLOBIN 32.6 pg (27.0-33.0); MEAN CORPUSCULAR HGB CONC 34.9 g/dl (32.0-36.5); MEAN CORPUSCULAR VOLUME 93.2 fl (80.0-96.0); PLATELET COUNT, AUTOMATED 171 10^3/uL (150-450); RED BLOOD COUNT 4.27 10^6/uL (4.00-5.40); WHITE BLOOD COUNT 4.2 10^3/uL (4.0-10.0)
[2024-06-15 14:38] LABS: ALBUMIN 3.3 G/DL (3.2-5.2); ALKALINE PHOSPHATASE 67 U/L (35-104); ALT/SGPT 53 U/L (7.0-40); AST/SGOT 51 U/L (<34); BILIRUBIN,TOTAL 1.9 MG/DL (0.3-1.2); BLOOD UREA NITROGEN 15 MG/DL (9-23); C REACTIVE PROTEIN QUANTITATIV 0.53 MG/DL (<1.0); CALCIUM LEVEL 9.3 MG/DL (8.3-10.6); CARBON DIOXIDE LEVEL 29 MMOL/L (20-31); CHLORIDE LEVEL 98 MMOL/L (98-107); CREATININE FOR GFR 0.66 MG/DL (0.55-1.30); GLOMERULAR FILTRATION RATE > 60.0 (>45); GLUCOSE, FASTING 105 MG/DL (74-106); POTASSIUM SERUM 3.4 MMOL/L (3.5-5.1); SODIUM LEVEL 137 MMOL/L (136-145); TOTAL PROTEIN 8.4 G/DL (5.7-8.2)
[2024-06-15 14:41] LABS: PREALBUMIN 13.2 MG/DL (10.0-40.0)
== END ==
LOC: M LAB 13:08
PROVIDERS: ATTEND Surgery
DX: R11.0 Nausea (principal); R63.4 Abnormal weight loss

== ENCOUNTER 2024-06-16 11:27 | Day surgery (SDC) | payer BC, MEDICARE ==
[~2024-06-16 11:27] MED LIST changes: -LIDOCAINE 2% 100MG/5ML SDV (FOR ANES.) As Ordered ONE; -METO10TA3 PO; -PANT40TA29 PO; -THIA100TA PO; -TRAZ-252 PO; -ZANU80CA PO; -propofoL 200 MG/20 ML VIAL As Ordered ONE
[2024-06-16 13:52] VITALS: BP 133/76; O2SAT 99
[2024-06-17] MEDS ORDERED: METO10TA3 PO (00:03)
[2024-06-17] MEDS ORDERED: PANT40TA29 PO (00:03)
== END 2024-06-16 13:55 | disposition home or self-care (01) ==
LOC: M OPP 11:27
PROVIDERS: ATTEND Surgery
DX: K29.70 Gastritis, unspecified, without bleeding (principal); R11.2 Nausea with vomiting, unspecified; R63.4 Abnormal weight loss; I10 Essential (primary) hypertension; E78.00 Pure hypercholesterolemia, unspecified; C88.00 Waldenstrom macroglobulinemia not having achieved remission; Z95.2 Presence of prosthetic heart valve; M62.81 Muscle weakness (generalized); R79.89 Other specified abnormal findings of blood chemistry; Z87.891 Personal history of nicotine dependence

== ENCOUNTER 2024-06-16 19:35 | Inpatient (IN) | payer BC, MEDICARE ==
[~2024-06-16] VITALS: Ht 177.8 cm; Wt 91.6 kg
[2024-06-16 20:29] LABS: VENOUS HCO3 27.9 MMOL/L (23.0-27.0); VENOUS PARTIAL PRESSURE CO2 48.4 mmHg (38.0-50.0); VENOUS PARTIAL PRESSURE O2 36.1 mmHg (30.0-50.0); VENOUS PH 7.379 UNITS (7.330-7.430); VENOUS STANDARD HCO3 25.5 MMOL/L; VENOUS TOTAL CO2 29.4 MMOL/L (24.0-28.0)
[2024-06-16 20:40] LABS: BASO % 0.9 % (0.0-1.0); EOS # 0.1 10^3/uL (0.0-0.5); EOS % 1.4 % (0.0-3.0); HEMATOCRIT 37.7 % (36.0-47.0); HEMOGLOBIN 13.2 g/dl (12.0-15.5); LYMPH % 22.6 % (24.0-44.0); MEAN CORPUSCULAR HEMOGLOBIN 32.4 pg (27.0-33.0); MEAN CORPUSCULAR VOLUME 92.6 fl (80.0-96.0); MONO # 0.6 10^3/uL (0.0-0.8); MONO % 14.6 % (2.0-8.0); NEUTROPHILS # 2.6 10^3/uL (1.5-8.5); NEUTROPHILS % 60.3 % (36.0-66.0); PLATELET COUNT, AUTOMATED 146 10^3/uL (150-450); RED BLOOD COUNT 4.07 10^6/uL (4.00-5.40); WHITE BLOOD COUNT 4.3 10^3/uL (4.0-10.0)
[2024-06-16 21:10] LABS: CK-MB VALUE MASS 1.1 NG/ML (<3.6); ETHYL ALCOHOL (ETHANOL) 0.006 % (0.000-0.010)
[2024-06-16 21:11] LABS: SALICYLATE LEVEL < 3.0 MG/DL (<30)
[2024-06-16 21:12] LABS: ALBUMIN 3.4 G/DL (3.2-5.2); ALKALINE PHOSPHATASE 68 U/L (35-104); ALT/SGPT 45 U/L (7.0-40); AST/SGOT 37 U/L (<34); BILIRUBIN,DIRECT 0.6 MG/DL (<0.4); BILIRUBIN,TOTAL 1.7 MG/DL (0.3-1.2); BLOOD UREA NITROGEN 19 MG/DL (9-23); CALCIUM LEVEL 9.2 MG/DL (8.3-10.6); CARBON DIOXIDE LEVEL 28 MMOL/L (20-31); CHLORIDE LEVEL 98 MMOL/L (98-107); CPK CREATINE PHOSPHOKINASE < 15 U/L (34-145); CREATININE FOR GFR 0.65 MG/DL (0.55-1.30); GLOMERULAR FILTRATION RATE > 60.0 (>45); GLUCOSE, FASTING 102 MG/DL (74-106); POTASSIUM SERUM 3.3 MMOL/L (3.5-5.1); SODIUM LEVEL 138 MMOL/L (136-145); TOTAL PROTEIN 8.3 G/DL (5.7-8.2)
[2024-06-16 21:14] LABS: THYROID STIMULATING HORMONE 1.007 uIU/ML (0.55-4.78)
[2024-06-16] MEDS: POTASSIUM CHLORIDE 10% LIQ 20MEQ/15ML UDC PO ONE (23:42)
[2024-06-17] VITALS (8 sets, daily range): BP systolic 109–159; BP diastolic 56–75; TEMP 97.9–99; O2SAT 97–99
[2024-06-17] MEDS ORDERED: PANT40TA29 PO (00:03)
[2024-06-17] MEDS ORDERED: METO10TA3 PO (00:03)
[2024-06-17] MEDS ORDERED: HOME MED LIST COMPLETE! XX SCH (00:05)
[2024-06-17] MEDS ORDERED: MOM 30ML SUSPENSION UDC PO PRN (00:25)
[2024-06-17 00:48] LABS: CK-MB VALUE MASS < 1.0 NG/ML (<3.6)
[2024-06-17 00:49] LABS: CPK CREATINE PHOSPHOKINASE 16 U/L (34-145); MB/CK RELATIVE INDEX 6.25 (< OR =4)
[2024-06-17 01:01] LABS: PROCALCITONIN 0.11 ng/ml
[2024-06-17 04:29] LABS: HEMATOCRIT 33.9 % (36.0-47.0); HEMOGLOBIN 11.8 g/dl (12.0-15.5); MEAN CORPUSCULAR HEMOGLOBIN 32.2 pg (27.0-33.0); MEAN CORPUSCULAR HGB CONC 34.8 g/dl (32.0-36.5); MEAN CORPUSCULAR VOLUME 92.6 fl (80.0-96.0); PLATELET COUNT, AUTOMATED 127 10^3/uL (150-450); RED BLOOD COUNT 3.66 10^6/uL (4.00-5.40); WHITE BLOOD COUNT 4.1 10^3/uL (4.0-10.0)
[2024-06-17 04:46] LABS: INR 1.17; PROTHROMBIN TIME 15.2 SECONDS (12.5-14.5)
[2024-06-17 04:53] LABS: FOLATE 3.8 NG/ML (>5.4); VITAMIN B12 LEVEL 1280 PG/ML (211-911)
[2024-06-17 06:02] LABS: ALBUMIN 2.9 G/DL (3.2-5.2); ALKALINE PHOSPHATASE 58 U/L (35-104); ALT/SGPT 34 U/L (7.0-40); AST/SGOT 28 U/L (<34); BILIRUBIN,TOTAL 1.4 MG/DL (0.3-1.2); BLOOD UREA NITROGEN 17 MG/DL (9-23); CALCIUM LEVEL 8.6 MG/DL (8.3-10.6); CARBON DIOXIDE LEVEL 26 MMOL/L (20-31); CHLORIDE LEVEL 101 MMOL/L (98-107); CREATININE FOR GFR 0.58 MG/DL (0.55-1.30); GLOMERULAR FILTRATION RATE > 60.0 (>45); GLUCOSE, FASTING 85 MG/DL (74-106); POTASSIUM SERUM 3.2 MMOL/L (3.5-5.1); SODIUM LEVEL 139 MMOL/L (136-145); TOTAL PROTEIN 7.2 G/DL (5.7-8.2)
[2024-06-17 08:23] LABS: C REACTIVE PROTEIN QUANTITATIV 0.73 MG/DL (<1.0)
[2024-06-17 08:25] LABS: IMMUNOGLOBULIN A 53.4 MG/DL (40-350)
[2024-06-17 08:26] LABS: TOTAL 25(OH) VITAMIN D 6.5 NG/ML (20.0-100.0)
[2024-06-17] MEDS: KCL 10MEQ/100ML SWI (KRUN) 10 MEQ in IV 1 EA IV ONE (08:31)
[2024-06-17] MEDS: POTASSIUM CHLORIDE 10% LIQ 20MEQ/15ML UDC PO ONE (08:31)
[2024-06-17] MEDS: LR 1,000 ML IV ONE (08:31)
[2024-06-17] MEDS: ENOXAPARIN 40MG/0.4ML SYRINGE (J1650 PER 10MG) SC SCH (08:32)
[2024-06-17] MEDS: FOLIC ACID 1 MG in NS 50 ML IV ONE (10:15)
[2024-06-17] MEDS: LR 1,000 ML IV SCH (12:46)
[2024-06-17] MEDS ORDERED: PROHANCE 279.3MG/ML 15ML VIAL As Ordered ONE (13:32)
[2024-06-17 13:42] LABS: THYROGLOBULIN ANTIBODY < 15.0 U/ML (<60.0); THYROID PEROXIDASE ANTIBODY < 28.0 U/ML (<60.0)
[2024-06-17] MEDS: VITAMIN D 50,000 UNITS CAPSULE (ERGOCALCIFEROL 1.25MG) PO SCH (14:02)
[2024-06-17] MEDS: THIAMINE INJection 500 MG in NS 100 ML IV SCH (17:56)
[2024-06-17] MEDS ORDERED: THIAMINE INJection 500 MG in NS 100 ML IV SCH (18:30)
[2024-06-17] MEDS: methylPREDNISolone 125MG 2ML VIAL IV SCH (19:14)
[2024-06-18] VITALS (14 sets, daily range): BP systolic 128–174; BP diastolic 63–81; TEMP 98–99; O2SAT 97–99
[2024-06-18] MEDS ORDERED: CALCIUM GLUCONATE 1,000 MG in DEXTROSE 5% (D5W) MINI-BAG PLU 100 ML IV ONE (00:15)
[2024-06-18 04:23] LABS: T P ELECTROPHORESIS SO 7.2 g/dL (6.1-8.1)
[2024-06-18 05:38] LABS: BLOOD UREA NITROGEN 13 MG/DL (9-23); CALCIUM LEVEL 8.7 MG/DL (8.3-10.6); CARBON DIOXIDE LEVEL 27 MMOL/L (20-31); CHLORIDE LEVEL 102 MMOL/L (98-107); GLOMERULAR FILTRATION RATE > 60.0 (>45); GLUCOSE, FASTING 139 MG/DL (74-106); POTASSIUM SERUM 4.3 MMOL/L (3.5-5.1); SODIUM LEVEL 138 MMOL/L (136-145)
[2024-06-18 12:25] LABS: KETONE, URINE AUTO RFX TRACE mg/dL (NEGATIVE); MUCUS, URINE RFX SMALL (NEGATIVE); NITRITE, URINE AUTO RFX NEGATIVE (NEGATIVE); RBC, URINE AUTO RFX 2 /HPF (0-3); SQUAM EPITHELIAL CELL UR AURFX 2 /HPF (0-6); WBC, URINE AUTO RFX 8 /HPF (0-3)
[2024-06-18 12:32] LABS: LEUKOCYTE ESTERASE UR AUTO RFX 1+ (NEGATIVE)
[2024-06-18] MEDS: LR 1,000 ML IV ONE (14:17)
[2024-06-18] MEDS: cefTRIAXone SOD 1 GM in DEXTROSE 5% (D5W) ADV/MINI-BAG 50 ML IV SCH (15:22)
[2024-06-18 18:11] LABS: CSF TUBE# TP TUBE 2; TOTAL PROTEIN,CSF 52.5 MG/DL (15-45)
[2024-06-18 18:14] LABS: APPEARANCE, CSF CLEAR (CLEAR); COLOR, CSF COLORLESS (COLORLESS); CSF TUBE# CELL CNT TUBE 1; CSF TUBE# GLU TUBE 2
[2024-06-19] VITALS: BP 147/65; TEMP 98.6; O2SAT 99
[2024-06-19 04:00] VITALS: BP 138/69; TEMP 98; O2SAT 97
[2024-06-19 07:58] VITALS: BP 160/73; TEMP 98.1; O2SAT 97
[2024-06-19] MEDS: METOPROLOL TART 50 MG TAB PO SCH (10:22)
[2024-06-19 12:13] VITALS: BP 117/62; TEMP 97.9; O2SAT 98
[2024-06-19 14:53] LABS: ANA SCREEN, IFA NEGATIVE (NEGATIVE)
[2024-06-19] MEDS ORDERED: FOLIC ACID 1 MG in NS 50 ML IV SCH (16:40)
[2024-06-19 16:46] VITALS: BP 114/56; TEMP 98.3; O2SAT 96
[2024-06-19] MEDS: FOLIC ACID 1MG TAB PO SCH (18:32)
[2024-06-19 20:00] VITALS: BP 110/54; TEMP 97.9; O2SAT 95
[2024-06-19] MEDS: MIRTAZAPINE 15 MG TAB PO SCH (21:03)
[2024-06-20] VITALS: BP 115/59; TEMP 97.6; O2SAT 94
[2024-06-20 04:00] VITALS: BP 95/55; TEMP 97.2; O2SAT 92
[2024-06-20 05:39] LABS: BLOOD UREA NITROGEN 12 MG/DL (9-23); CARBON DIOXIDE LEVEL 28 MMOL/L (20-31); CHLORIDE LEVEL 110 MMOL/L (98-107); CREATININE FOR GFR 0.75 MG/DL (0.55-1.30); GLOMERULAR FILTRATION RATE > 60.0 (>45); GLUCOSE, FASTING 84 MG/DL (74-106); MAGNESIUM LEVEL 1.4 MG/DL (1.8-2.4); PHOSPHORUS LEVEL 3.4 MG/DL (2.4-5.1); POTASSIUM SERUM 3.5 MMOL/L (3.5-5.1); SODIUM LEVEL 146 MMOL/L (136-145)
[2024-06-20] MEDS: MAG SULF 1GM/100ML (MAG RUN) 1 GM in IV 1 EA IV SCH (06:18)
[2024-06-20] MEDS: POTASSIUM CHLORIDE 10% LIQ 20MEQ/15ML UDC PO ONE (07:56)
[2024-06-20 08:00] VITALS: BP 123/66; TEMP 97.3; O2SAT 96
[2024-06-20 08:14] LABS: ALBUMIN SPEP 3.3 g/dL (3.8-4.8); ALPHA-1-GLOBULINS SO 0.3 g/dL (0.2-0.3); ALPHA-2-GLOBULINS SO 0.6 g/dL (0.5-0.9); BETA 2 GLOBULIN 0.2 g/dL (0.2-0.5); BETA-GLOBULIN SO 0.3 g/dL (0.4-0.6); GAMMA GLOBULINS SO 2.5 g/dL (0.8-1.7); SPEP ABN PROTEIN BAND 1 2.3 g/dL (NONE DETECTED)
[2024-06-20 12:08] VITALS: BP 90/53; TEMP 97.6; O2SAT 96
[2024-06-20 15:39] VITALS: BP 115/55; TEMP 97.9; O2SAT 97
[2024-06-20 20:00] VITALS: BP 108/55; TEMP 97.8; O2SAT 98
[2024-06-20 23:24] LABS: INR 1.02; PARTIAL THROMBOPLASTIN TIME 27.3 SECONDS (24.8-34.2); PROTHROMBIN TIME 13.7 SECONDS (12.5-14.5)
[2024-06-21] VITALS (7 sets, daily range): BP systolic 110–146; BP diastolic 58–70; TEMP 97.2–98.6; O2SAT 94–98
[2024-06-21 05:46] LABS: BLOOD UREA NITROGEN 11 MG/DL (9-23); CALCIUM LEVEL 8.1 MG/DL (8.3-10.6); CARBON DIOXIDE LEVEL 28 MMOL/L (20-31); CHLORIDE LEVEL 110 MMOL/L (98-107); CREATININE FOR GFR 0.77 MG/DL (0.55-1.30); GLOMERULAR FILTRATION RATE > 60.0 (>45); GLUCOSE, FASTING 76 MG/DL (74-106); MAGNESIUM LEVEL 1.7 MG/DL (1.8-2.4); POTASSIUM SERUM 3.5 MMOL/L (3.5-5.1); SODIUM LEVEL 145 MMOL/L (136-145)
[2024-06-21] MEDS: MAGNESIUM OXIDE 400MG TAB (MAG-OX) PO ONE (09:07)
[2024-06-21] MEDS: MAG SULF 1GM/100ML (MAG RUN) 1 GM in IV 1 EA IV ONE (09:08)
[2024-06-21 12:01] LABS: KETONE, URINE AUTO RFX NEGATIVE (NEGATIVE); LEUKOCYTE ESTERASE UR AUTO RFX NEGATIVE (NEGATIVE); NITRITE, URINE AUTO RFX NEGATIVE (NEGATIVE); RBC, URINE AUTO RFX 1 /HPF (0-3); SQUAM EPITHELIAL CELL UR AURFX 0 /HPF (0-6); WBC, URINE AUTO RFX 5 /HPF (0-3)
[2024-06-21 14:17] LABS: ACETONE, URINE NEGATIVE mg/dL (<5); ETHANOL, URINE NEGATIVE mg/dL (<5); ISOPROPANOL, URINE NEGATIVE mg/dL (<5); METHANOL, URINE NEGATIVE mg/dL (<5)
== END 2024-06-21 17:52 | disposition short-term general hospital (02) | DRG 691 ==
LOC: M ED 19:35 → M ED INP 23:43 → M ICU 06-17 00:36
PROVIDERS: ADMIT Family Medicine; ATTEND Internal Medicine Critical Care Medicine
DX: C88.00 Waldenstrom macroglobulinemia not having achieved remission (principal); I10 Essential (primary) hypertension; E51.2 Wernicke's encephalopathy; E53.8 Deficiency of other specified B group vitamins; E87.6 Hypokalemia; F04 Amnestic disorder due to known physiological condition; R27.0 Ataxia, unspecified; Z95.0 Presence of cardiac pacemaker; Z95.2 Presence of prosthetic heart valve; D75.1 Secondary polycythemia; Z87.891 Personal history of nicotine dependence; E55.9 Vitamin D deficiency, unspecified; E83.42 Hypomagnesemia; Z79.899 Other long term (current) drug therapy; Z88.8 Allergy status to other drugs, medicaments and biological substances

== ENCOUNTER → 2024-07-18 | Outpatient (CLI) | payer BC, MEDICARE ==
[~2024-07-18] VITALS: Ht 177.8 cm; Wt 84.8 kg
[~2024-07-18] MED LIST changes: +METO10TA3 PO; +PANT40TA29 PO; +THIA100TA PO; +TRAZ-252 PO; +ZANU80CA PO
[2024-07-18 14:35] VITALS: BP 186/106; O2SAT 96
== END ==
LOC: M PAL 14:29
PROVIDERS: ATTEND Family Medicine
DX: C88.00 Waldenstrom macroglobulinemia not having achieved remission (principal); R41.0 Disorientation, unspecified; Z95.4 Presence of other heart-valve replacement; Z88.8 Allergy status to other drugs, medicaments and biological substances; Z79.899 Other long term (current) drug therapy; Z66 Do not resuscitate

== ENCOUNTER → 2024-08-24 | Outpatient (CLI) | payer BC, MEDICARE ==
[~2024-08-24] VITALS: Ht 175.3 cm; Wt 81.1 kg
[2024-08-24 16:44] VITALS: BP 154/85; O2SAT 97
== END ==
LOC: M PAL 16:23
PROVIDERS: ATTEND Physician Assistant
DX: Z51.5 Encounter for palliative care (principal); Z66 Do not resuscitate; C88.00 Waldenstrom macroglobulinemia not having achieved remission; Z79.899 Other long term (current) drug therapy; Z88.8 Allergy status to other drugs, medicaments and biological substances

== ENCOUNTER → 2024-09-13 | Outpatient (CLI) | payer BC, MEDICARE ==
[~2024-09-13] VITALS: Ht 177.8 cm; Wt 78.1 kg
[~2024-09-13] MED LIST changes: +LEVO1TAB38 PO
[2024-09-13 16:54] VITALS: BP 140/78; O2SAT 98
== END ==
LOC: M PAL 16:28
PROVIDERS: ATTEND Physician Assistant
DX: Z51.5 Encounter for palliative care (principal); C88.00 Waldenstrom macroglobulinemia not having achieved remission; Z79.622 Long term (current) use of Janus kinase inhibitor; Z79.899 Other long term (current) drug therapy; Z87.440 Personal history of urinary (tract) infections; Z88.8 Allergy status to other drugs, medicaments and biological substances; Z66 Do not resuscitate

== ENCOUNTER → 2025-03-31 | Outpatient (CLI) | payer MEDICARE ==
[~2025-03-31] MED LIST changes: +ZANU160T PO
[2025-03-31 16:31] LABS: BASO # 0.0 10^3/uL (0.0-0.2); BASO % 0.6 % (0.0-1.0); EOS # 0.1 10^3/uL (0.0-0.5); EOS % 1.7 % (0.0-3.0); LYMPH # 1.3 10^3/uL (1.5-5.0); LYMPH % 24.1 % (24.0-44.0); MONO # 0.7 10^3/uL (0.0-0.8); MONO % 13.0 % (2.0-8.0); NEUTROPHILS # 3.3 10^3/uL (1.5-8.5); NEUTROPHILS % 60.4 % (36.0-66.0); PLATELET COUNT, AUTOMATED 169 10^3/uL (150-450)
[2025-03-31 17:03] LABS: ALT/SGPT 11 U/L (7.0-40); AST/SGOT 16 U/L (<34); CALCIUM LEVEL 9.0 MG/DL (8.3-10.6); CARBON DIOXIDE LEVEL 28 MMOL/L (20-31); CHLORIDE LEVEL 105 MMOL/L (98-107); CREATININE FOR GFR 0.56 MG/DL (0.55-1.30); GLOMERULAR FILTRATION RATE > 90.0 (>39); POTASSIUM SERUM 4.6 MMOL/L (3.5-5.1); SODIUM LEVEL 142 MMOL/L (136-145)
[2025-04-02 23:52] LABS: T P ELECTROPHORESIS SO 7.0 g/dL (6.1-8.1)
[2025-04-03 13:02] LABS: FREE KAPPA LIGHT CHAINS SERUM 10.6 mg/L (3.3-19.4); FREE LAMBDA LIGHT CHAINS SERUM 100.7 mg/L (5.7-26.3); KAPPA/LAMBDA RATIO SERUM 0.11 (0.26-1.65)
== END ==
LOC: M LAB 16:01
PROVIDERS: ATTEND Specialist
DX: D89.0 Polyclonal hypergammaglobulinemia (principal)

== ENCOUNTER → 2025-04-19 | Outpatient (CLI) | payer MEDICARE | LOC: M WHC 12:27 | PROVIDERS: ATTEND Nurse Practitioner Family | DX: Z12.31 Encounter for screening mammogram for malignant neoplasm of breast (principal); M81.0 Age-related osteoporosis without current pathological fracture ==